=== PATIENT | male | born 1960 | race Caucasian/White ===

== ENCOUNTER → 2016-08-18 | Outpatient (CLI) | payer BC ==
[2016-08-18 18:48] LABS: Cholesterol 156 mg/dL (<200); HDL Cholesterol 45 mg/dL (40-60); Triglycerides 168 mg/dL (<150)
== END | disposition home or self-care (01) ==
LOC: MMGSC 16:52
PROVIDERS: ATTEND Family Medicine
DX: Z00.00 Encounter for general adult medical examination without abnormal findings (principal)
CPT/HCPCS: 36415; 80061

== ENCOUNTER → 2017-01-11 | Outpatient (CLI) | payer BC | END | disposition home or self-care (01) | LOC: MMGSC 15:04 | PROVIDERS: ATTEND Family Medicine | DX: Z12.5 Encounter for screening for malignant neoplasm of prostate (principal) | CPT/HCPCS: 36415; G0103 ==

== ENCOUNTER → 2017-07-07 | Outpatient (CLI) | payer BC | LOC: MMGSC 16:31 | PROVIDERS: ATTEND Surgery Vascular Surgery | DX: I82.409 Acute embolism and thrombosis of unspecified deep veins of unspecified lower extremity (principal); Z13.6 Encounter for screening for cardiovascular disorders | CPT/HCPCS: 36415; 83090 ==

== ENCOUNTER → 2017-07-07 | Outpatient (CLI) | payer BC ==
[2017-07-07 18:47] LABS: Basophils # (A) 0.1 k/uL (0-0.2); Basophils % (A) 1 %; Eosinophils # (A) 0.1 k/uL (0-0.7); Eosinophils % (A) 2 %; HGB 14.7 gm/dL (13.0-17.5); Lymphocytes # (A) 1.8 k/uL (1.0-4.8); Lymphocytes % (A) 29 %; MCH 29.7 pg (25.0-35.0); MCHC 33.4 g/dL (31.0-37.0); MCV 88.9 fL (80.0-100.0); Mean Platelet Volume 8.9; Monocytes # (A) 0.4 k/uL (0-1.0); Monocytes % (A) 6 %; Neutrophils # (A) 3.7 k/uL (1.3-7.7); Neutrophils % (A) 59 %; Platelet Count 172 k/uL (150-450); RBC 4.94 m/uL (4.30-5.90); RDW 12.4 % (11.5-15.5); WBC 6.2 k/uL (3.8-10.6)
[2017-07-07 19:05] LABS: ALT 56 U/L (21-72); AST 38 U/L (17-59); Albumin 4.4 g/dL (3.5-5.0); Alkaline Phosphatase 51 U/L (38-126); Anion Gap 11 mmol/L; Blood Urea Nitrogen 18 mg/dL (9-20); Calcium 9.8 mg/dL (8.4-10.2); Carbon Dioxide 27 mmol/L (22-30); Chloride 103 mmol/L (98-107); Glucose 86 mg/dL (74-99); Potassium 4.4 mmol/L (3.5-5.1); Sodium 141 mmol/L (137-145); Total Bilirubin 0.5 mg/dL (0.2-1.3); Total Protein 7.3 g/dL (6.3-8.2)
== END | disposition home or self-care (01) ==
LOC: MMGSC 17:11
PROVIDERS: ATTEND Family Medicine
DX: I10 Essential (primary) hypertension (principal); K21.9 Gastro-esophageal reflux disease without esophagitis; K92.1 Melena
CPT/HCPCS: 80053; 85025

== ENCOUNTER → 2017-08-23 | Outpatient (CLI) | payer BC ==
[2017-08-23 19:22] LABS: PSA Annual Screen 0.67 ng/mL (0.00-4.00)
[2017-08-24 01:59] LABS: Hemoglobin A1C 5.7 % (4.0-6.0)
== END | disposition home or self-care (01) ==
LOC: MMGSC 16:43
PROVIDERS: ATTEND Family Medicine
DX: Z00.00 Encounter for general adult medical examination without abnormal findings (principal); Z12.5 Encounter for screening for malignant neoplasm of prostate
CPT/HCPCS: 80061; 83036; 36415; G0103

== ENCOUNTER 2018-03-20 07:00 | Emergency (ER) | payer BC ==
--- NOTE | 2018-03-20 07:34 | ED ---
General Adult HPI - General Chief complaint: Extremity Injury, Lower Stated complaint: Ankle pain Time Seen by Provider: 03/20/18 07:20 Source: patient, family, RN notes reviewed Mode of arrival: ambulatory Limitations: no limitations - History of Present Illness Initial comments: Patient 58-year-old male presented to the emergency room today with chief complaint of pain to the left posterior ankle. Denies any injury or trauma. Worried about possible blood clot as he had a blood clot in the past that was removed. Patient states not on any blood thinners. States pain is worse with movement of the left ankle. Patient does admit that he has weak ankles and does twist them a lot but does not remember any injury. He denies any other complaints or symptoms. Patient denies any recent fever, chills, shortness of breath, chest pain, back pain, abdominal pain, nausea or vomiting, numbness or tingling, headaches or visual changes, or any other complaints. - Related Data Home Medications Medication Instructions Recorded Confirmed No Known Home Medications 03/20/18 03/20/18 Allergies Allergy/AdvReac Type Severity Reaction Status Date / Time No Known Allergies Allergy Verified 03/20/18 07:15 Review of Systems ROS Statement: Those systems with pertinent positive or pertinent negative responses have been documented in the HPI. ROS Other: All systems not noted in ROS Statement are negative. Past Medical History Additional Past Medical History / Comment(s): DVT, carpal tunnel History of Any Multi-Drug Resistant Organisms: None Reported Additional Past Surgical History / Comment(s): carpal tunnel right, vein valve left leg Past Psychological History: No Psychological Hx Reported Smoking Status: Never smoker Past Alcohol Use History: Occasional Past Drug Use History: None Reported General Exam - General Exam Comments Initial Comments: General: The patient is awake and alert, in no distress, and does not appear acutely ill. Neck: The neck is supple, there is no tenderness or JVD. Musculoskeletal: Normal appearance of the left foot and ankle no obvious deformity. Patient shows good range of motion. No bony tenderness over left foot, ankle, knee. Pedal pulse 2+. Strength 5/5. Sensations are intact. Tender to palpation distal to the medial malleolus and ligamentous areas. Neurological: A&O x 3. CN II-XII intact, There are no obvious motor or sensory deficits. Coordination appears grossly intact. Speech is normal. Skin: Skin is warm and dry and no rashes or lesions are noted. Psychiatric: Normal mood and affect. Limitations: no limitations Course Vital Signs 03/20/18 07:11 Temperature 100 F H Pulse Rate 79 Respiratory 18 Rate Blood Pressure 146/98 O2 Sat by Pulse 97 Oximetry Medical Decision Making - Medical Decision Making Patient reexamined at this time shows no signs of distress resting comfort. His ultrasound is negative. There is no redness or signs for infection. Patient treated for ankle sprain advised ice elevate. Advised to follow-up family doctor over the next 2 days return here to the emergency room symptoms increase worsen. Disposition Clinical Impression: Ankle sprain Disposition: HOME SELF-CARE Condition: Good Instructions: Ankle Sprain (ED) Additional Instructions: Please use medication as discussed. Please follow-up with family doctor in the next 2 days of symptoms have not improved. Please return to emergency room if the symptoms increase or worsen or for any other concerns. Is patient prescribed a controlled substance at d/c from ED?: No Referrals: Kellie Albrecht MD [Primary Care Provider] - 1-2 days Time of Disposition: 08:49
--- NOTE | 2018-03-20 08:21 | US ---
EXAMINATION TYPE: US venous doppler duplex LE LT DATE OF EXAM: 03/20/2018 8:07 AM COMPARISON: NONE CLINICAL HISTORY: 58-year-old male Pain. EC patient attempted to put weight on left foot this morning and experienced severe left ankle pain; left GSV removed due to varicosities SIDE PERFORMED: Left TECHNIQUE: The lower extremity deep venous system is examined utilizing real time linear array sonog demetrius with graded compression, doppler sonography and color-flow sonography. FINDINGS: VESSELS IMAGED: Common Femoral Vein Deep Femoral Vein Femoral Vein Popliteal Vein Proximal Calf Veins Posterior tibial veins (* superficial vessels) Left Leg: Negative for DVT IMPRESSION: No evidence for DVT within the left lower extremity.
[2018-03-20 09:04] VITALS: BP 129/78; PULSE 68; RESP 16; TEMP 98.7
== END 2018-03-20 09:00 | disposition home or self-care (01) ==
LOC: EC 07:00
DX: S93.402A Sprain of unspecified ligament of left ankle, initial encounter (principal); Z86.718 Personal history of other venous thrombosis and embolism; X50.1XXA Overexertion from prolonged static or awkward postures, initial encounter
CPT/HCPCS: 99283

== ENCOUNTER → 2018-05-30 | Outpatient (CLI) | payer BC ==
--- NOTE | 2018-05-30 22:34 | MR ---
EXAMINATION TYPE: MR knee RT wo con DATE OF EXAM: 05/30/2018 COMPARISON: Outside right knee x-ray May 05, 2018. HISTORY: Rt knee pain x 6 mos, no trauma TECHNIQUE: Multiplanar, multisequence images of the knee is performed without IV contrast. FINDINGS: MEDIAL MENISCUS: Anterior horn is intact without tear. Triangular shape increased signal is visualize d posterior horn but does not extend to articular surface LATERAL MENISCUS: Anterior and posterior horns are intact without tear. CRUCIATE LIGAMENTS: The anterior and posterior cruciate ligaments are intact and unremarkable. COLLATERAL LIGAMENTS: The medial collateral ligament and lateral collateral ligament complex are inta ct and unremarkable. EXTENSOR MECHANISM: Visualized quadriceps and patellar tendons are intact. EFFUSION: No significant suprapatellar joint effusion. POPLITEAL CYST: No popliteal/ashford cyst. TRICOMPARTMENT SPACES: Mild tricompartment joint space loss and spurring is seen. CARTILAGE: There is some thinning of articular cartilage inferiorly along posterior patellar pole. Th ere is some thinning of articular cartilage medial tibiofemoral compartment. BONE MARROW SIGNAL: No focal abnormal marrow signal is appreciated. OTHER: No additional significant abnormality is appreciated. IMPRESSION: No full-thickness meniscal or ligamentous tear is seen. Possible intrasubstance tear post erior horn medial meniscus. Mild degenerative changes patellofemoral and medial tibiofemoral compartm ents.
== END | disposition home or self-care (01) ==
LOC: RADMRIMAIN 17:35
PROVIDERS: ATTEND Orthopaedic Surgery
DX: M17.11 Unilateral primary osteoarthritis, right knee (principal)

== ENCOUNTER 2019-12-17 07:03 | Day surgery (SDC) | payer BC ==
[2019-12-14 11:08] VITALS: BMI 33.9
[~2019-12-17 07:03] MED LIST: LACTATED RINGERS 1,000 ML IV SCH; LIDOCAINE 1% (10MG/ML) FOR IV START INTRADERMA PRN
[2019-12-17 07:25] VITALS: TEMP 97.3
[2019-12-17] MEDS ORDERED: PROPOFOL 10 MG/ML 20 ML VIAL IV ONE (08:25)
--- NOTE | 2019-12-17 08:49 | P.PCN ---
Date of Procedure: 12/17/19 Description of Procedure: BRIEF HISTORY: Patient is a 59-year-old female with family history of colon cancer who comes for colonoscopy for evaluation. Last colonoscopy 5 years ago and within normal limits. Father had colon cancer in his 50s. He also has brothers who have polyps removed. PROCEDURE PERFORMED: Colonoscopy with polypectomy. PREOPERATIVE DIAGNOSIS: Family history of colon cancer, last colonoscopy 2014. ESTIMATED BLOOD LOSS: Minimal. IV sedation per Anesthesia. PROCEDURE: After informed consent was obtained, the patient, was brought into the endoscopy unit. IV sedation was administered by Anesthesia under continuous monitoring. Digital rectal examination was normal. Initially the Olympus CF-190 flexible video colonoscope was then inserted in the rectum, gradually advanced into the cecum without any difficulty. Careful examination was performed as the scope was gradually being withdrawn. Ileocecal valve and the appendiceal orifice were visualized and appeared normal. Prep was excellent. Mucosa of the cecum, ascending colon, transverse colon, descending colon, sigmoid colon, and rectum appeared normal. Diminutive sessile 2 mm ascending colon polyp removed with cold forcep polypectomy. Retroflexion was performed in the rectum and no lesion s were seen, low-grade internal hemorrhoids noted. The patient tolerated the procedure well. IMPRESSION: Diminutive ascending colon polyp removed with cold forceps. Low-grade internal hemorrhoids. Otherwise normal-appearing colon from rectum to cecum. RECOMMENDATIONS: Findings of this examination were discussed with the patient and his family. Okay to resume diet. Okay to resume medications. Await pathology from polypectomy. Would recommend repeat colonoscopy in 5 years given family history of colon cancer.
[2019-12-17 09:02] VITALS: BP 133/79; PULSE 67; RESP 18
== END 2019-12-17 09:27 | disposition home or self-care (01) ==
LOC: ORWHC2ENDO 07:03
PROVIDERS: ATTEND Internal Medicine
DX: Z12.11 Encounter for screening for malignant neoplasm of colon (principal); D12.2 Benign neoplasm of ascending colon; K64.8 Other hemorrhoids; I10 Essential (primary) hypertension; E78.5 Hyperlipidemia, unspecified; Z79.899 Other long term (current) drug therapy; Z98.890 Other specified postprocedural states; Z86.69 Personal history of other diseases of the nervous system and sense organs; Z86.718 Personal history of other venous thrombosis and embolism; Z80.0 Family history of malignant neoplasm of digestive organs; Z83.71 Family history of colonic polyps
CPT/HCPCS: 88305; 45380; J2704

== ENCOUNTER → 2020-03-31 | Outpatient (CLI) | payer BC | END | disposition home or self-care (01) | LOC: LABWHC1 10:25 | PROVIDERS: ATTEND Family Medicine | DX: Z03.818 Encounter for observation for suspected exposure to other biological agents ruled out (principal) | CPT/HCPCS: U0003; C9803 ==

== ENCOUNTER → 2020-04-18 | Outpatient (CLI) | payer BC | END | disposition home or self-care (01) | LOC: LABWHC1 08:52 | PROVIDERS: ATTEND Family Medicine | DX: Z03.818 Encounter for observation for suspected exposure to other biological agents ruled out (principal); Z20.828 Contact with and (suspected) exposure to other viral communicable diseases | CPT/HCPCS: U0003; C9803 ==

== ENCOUNTER → 2024-03-14 | Outpatient (CLI) | payer OTHER ==
--- NOTE | 2024-03-14 09:41 | US ---
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; Has b een on BP meds for 40 years, spike to the 180's last week, mother had uncontrolled high BP also MEASUREMENTS: RENAL SIZE: Right Kidney: 11.9 x 5.7 x 6.4cm Left Kidney: 12.2 x 4.7 x 6.3cm Right Kidney: cyst seen superior pole = 2.6 x 2.5 x 2.9cm Left Kidney: exophytic cyst seen mid pole = 1.0 x 0.8 x 0.7cm Abd Aorta: mostly gassed out RESISTANCE INDEX Right: 0.7 Left: 0.7 RA/AO RATIO (< 3.5 ) Right: 1.8 Left: 1.1 RENAL ARTERY VELOCITY ( < 180 cm/s) Right: 148.5 Left: 90.5 Filling Layer Up Notes: Proximal left renal artery gassed out, no obvious stenosis seen No elevated renal artery velocities. No increased renal artery to aorta ratio. No elevated resistance indices. Bilateral simple renal cysts. IMPRESSION: 1. No ultrasound evidence for renal artery stenosis. If there is continued clinical concern, consider further evaluation with CTA abdomen. 2. Bilateral simple renal cysts.
== END | disposition home or self-care (01) ==
LOC: RADUSWWP 06:42
PROVIDERS: ATTEND Internal Medicine Clinical Cardiac Electrophysiology
DX: Q27.1 Congenital renal artery stenosis
CPT/HCPCS: 93975

== ENCOUNTER 2025-01-08 07:21 | Day surgery (SDC) | payer OTHER ==
[2025-01-08] MEDS: IV FLUID CONTINUATION 1,000 ML IV ONE (07:36)
[2025-01-08 07:46] VITALS: TEMP 97.8
[2025-01-08 08:04] LABS: Glucose,Whole Blood 69 mg/dL (70-110)
[2025-01-08] MEDS: LACTATED RINGERS 1,000 ML IV SCH (08:05)
[2025-01-08] MEDS: DEXTROSE 50% SYRINGE 50 ML IVP STA (08:30)
[2025-01-08 08:39] LABS: Glucose,Whole Blood 122 mg/dL (70-110)
[2025-01-08] MEDS ORDERED: PROPOFOL 10 MG/ML 20 ML VIAL IV ONE (08:41)
--- NOTE | 2025-01-08 08:56 | P.PCN ---
Date of Procedure: 01/08/25 Procedure(s) Performed: BRIEF HISTORY: Patient is a 64-year-old pleasant white man scheduled for an elective colonoscopy as a part of screening for history of colon polyps. Last colonoscopy was 5 years ago and was noted to have a tubular adenoma. PROCEDURE PERFORMED: Colonoscopy. PREOPERATIVE DIAGNOSIS: Screening for history of colon polyps. IV sedation per Anesthesia. PROCEDURE: After informed consent was obtained, the patient, was brought into the endoscopy unit. IV sedation was administered by Anesthesia under continuous monitoring. Digital rectal examination was normal. Initially the Olympus CF-160 flexible video colonoscope was then inserted in the rectum, gradually advanced into the cecum without any difficulty. Careful examination was performed as the scope was gradually being withdrawn. Ileocecal valve and the appendiceal orifice were visualized and appeared normal. Prep was excellent. Mucosa of the cecum, ascending colon, transverse colon, descending colon, sigmoid colon, and rectum appeared normal. Sigmoid diverticulosis. Retroflexion was performed in the rectum and no lesions were seen. The patient tolerated the procedure well. IMPRESSION: Normal-appearing colon from rectum to cecum with no evidence of colorectal neoplasia Scattered sigmoid diverticulosis. RECOMMENDATIONS: Findings of this examination were discussed with the patient as well as his family.. He was advised to have repeat screening colonoscopy in 10 years.
[2025-01-08 09:20] LABS: Glucose,Whole Blood 91 mg/dL (70-110)
[2025-01-08 09:32] VITALS: BP 128/85; PULSE 88; RESP 18
== END 2025-01-08 09:50 | disposition home or self-care (01) ==
LOC: ORWHC2ENDO 07:21
PROVIDERS: ATTEND Internal Medicine Gastroenterology
DX: Z12.11 Encounter for screening for malignant neoplasm of colon (principal); K57.30 Diverticulosis of large intestine without perforation or abscess without bleeding; I10 Essential (primary) hypertension; E78.5 Hyperlipidemia, unspecified; E11.9 Type 2 diabetes mellitus without complications; Z79.85 Long-term (current) use of injectable non-insulin antidiabetic drugs; Z79.899 Other long term (current) drug therapy; Z86.0101 Personal history of adenomatous and serrated colon polyps
CPT/HCPCS: 45378; J2704